=== PATIENT | female | born 1985 | race Caucasian/White ===

== ENCOUNTER 2019-12-04 06:37 | Day surgery (SDC) | payer BC ==
[2019-12-04] VITALS (10 sets, daily range): BP systolic 96–104; BP diastolic 54–74
[~2019-12-04] VITALS: Ht 154.9 cm; Wt 47.2 kg
[2019-12-04] MEDS ORDERED: PRENATA CHEWAB1 EACH PO (07:08)
[2019-12-04] MEDS ORDERED: FISH OIL CAP1000 MG ORAL (07:08)
[2019-12-04] MEDS ORDERED: COQ1050 MG PO (07:08)
[2019-12-04] MEDS ORDERED: fentaNYL 100 mcg/2 mL IV ONE (07:13)
[2019-12-04] MEDS ORDERED: Midazolam 2mg/2ml Inj ONE (07:13)
[2019-12-04] MEDS ORDERED: LR 1000ml 1,000 ML IVLG SCH (07:44)
--- NOTE | 2019-12-04 07:44 | Anethesia Preoperative Eval ---
Anesthesia Pre-op PMH/ROS General Date of Evaluation: Dec 04, 2019 Time of Evaluation: 07:40 Anesthesiologist: Estefania ASA Score: ASA 2 Mallampati Score Class I : Soft palate, uvula, fauces, pillars visible Class II: Soft palate, uvula, fauces visible Class III: Soft palate, base of uvula visible Class IV: Only hard plate visible Mallampati Classification: Class II Surgeon: Ludwig Diagnosis: Abdominal pain Surgical Procedure: Colonoscopy Anesthesia History: PONV Family History: no anesthesia problems Allergies: Coded Allergies: No Known Allergies (Unverified , 12/04/19) Medications: see eMAR Patient NPO?: Yes Past Medical History Cardiovascular: Denies: HTN, CAD, [place], valve dz, arrhythmia, other Pulmonary: Denies: asthma, COPD, VIDYA, other Gastrointestinal/Genitourinary: Reports: GERD, other - recurrent diarrhea; Denies: CRI, ESRD Neurologic/Psychiatric: Reports: depression/anxiety; Denies: dementia, CVA, TIA, other Endocrine: Denies: DM, hypothyroidism, steroids, other HEENT: Denies: cataract (L), cataract (R), glaucoma, [place] (L[place] (R), other Hematology/Immune: Reports: anemia - mild; Denies: DVT, bleeding disorder, other Musculoskeletal/Integumentary: Denies: OA, RA, DJD, DDD, edema, other PMH Narrative: as above PSxH Narrative: Appendectomy Anesthesia Pre-op Phys. Exam Physician Exam Last Vital Signs Date Time Temp Pulse Resp B/P (MAP) Pulse Ox O2 Delivery O2 Flow Rate FiO2 12/04/19 07:14 Room Air 12/04/19 07:09 97.6 75 18 96/63 100 Constitutional: NAD Neurologic: CN 2-12 intact Cardiovascular: RRR, no M/R/G Respiratory: CTA Gastrointestinal: S/NT/ND Airway Exam Mallampati Score: Class II MO: full Neck: flexible ROM: full Teeth: intact Dentures: no upper, no lower Anesthesia Pre-op A/P Labs see chart Urine Test Test 12/04/19 06:50 Urine HCG, Qualitative Negative (NEGATIVE) Risk Assessment & Plan Assessment: ASA 2 Plan: MAC Status Change Before Surgery: No Pre-Antibiotics Drug: none Adan Mac MD Dec 04, 2019 07:44
[2019-12-04] MEDS ORDERED: Meperidine 25mg/0.5ml Inj (FOR RIGORS ONLY) IV PRN (07:45)
[2019-12-04] MEDS ORDERED: Propofol 200mg/20ml IV ONE (08:00)
[2019-12-04] MEDS ORDERED: LR 1000ml ONE (08:00)
--- NOTE | 2019-12-04 08:11 | Short Stay Surgery H&P ---
History of Present Illness History of Present Illness Chief Complaint see typed H&P HPI Jenaera Khang Sandra is a 34 year old female who was admitted on for Diarrhea Patient History Allergies: Coded Allergies: No Known Allergies (Unverified , 12/04/19) Medication History Scheduled Fish Oil (Fish Oil 1,000 mg Capsule), 1,000 MG ORAL DAILY, (Reported) Vit37/Iron/Folic Acid ([place] Chewable Tablet), 1 EACH PO DAILY, ( Reported) Ubidecarenone (Coq10), 50 MG PO DAILY, (Reported) Physical Exam Vital Signs Last Vital Signs Date Time Temp Pulse Resp B/P (MAP) Pulse Ox O2 Delivery O2 Flow Rate FiO2 12/04/19 07:14 Room Air 12/04/19 07:09 97.6 75 18 96/63 100 Labs Laboratory Tests Test 12/04/19 06:50 Urine HCG, Qualitative Negative (NEGATIVE) Plan Attestation Are the patient's medical conditions optimized for surgery? Bing Kirkpatrick MD Dec 04, 2019 08:11
--- NOTE | 2019-12-04 08:11 | Pre-Procedure Note/Attestation ---
Pre-Procedure Note/Attestation Complete Prior to Procedure Planned Procedure: not applicable Procedure Narrative: colon bx Indications for Procedure Pre-Operative Diagnosis: diarrhea Attestation I attest that I discussed the nature of the procedure; its benefits; risks and complications; and alternatives (and the risks and benefits of such alternatives ), prior to the procedure, with the patient (or the patient's legal metals sales representative). I attest that, if there was a reasonable possibility of needing a blood transfusion, the patient (or the patient's legal metals sales representative) was given the [facility] standardized written summary, pursuant to the [place] Blood Safety Act ([place] Health and Safety Code # 1645, as amended). I attest that I re-evaluated the patient just prior to the surgery and that there has been no change in the patient's H&P, except as documented below: Bing Kirkpatrick MD Dec 04, 2019 08:11
--- NOTE | 2019-12-04 08:44 | Immediate Post-Op Evaluation ---
Immediate Post-Op Evalulation Immediate Post-Op Evalulation Procedure: Colonoscopy Date of Evaluation: Dec 04, 2019 Time of Evaluation: 08:43 IV Fluids: 700 Blood Products: none Estimated Blood Loss: none Urinary Output: none Blood Pressure Systolic: 104 Blood Pressure Diastolic: 56 Pulse Rate: 72 Respiratory Rate: 20 O2 Sat by Pulse Oximetry: 99 Temperature (Fahrenheit): 97.6 Pain Score (1-10): 1 Nausea: No Vomiting: No Complications none Patient Status: awake, patent, none Hydration Status: adequate Adan Mac MD Dec 04, 2019 08:44
--- NOTE | 2019-12-04 10:08 | 48 Hour Post Anesthesia Eval ---
Post Anesthesia Evaluation Procedure: Colonoscopy Date of Evaluation: Dec 04, 2019 Time of Evaluation: 10:07 Blood Pressure Systolic: 102 0: 54 Pulse Rate: 76 Respiratory Rate: 20 Temperature (Fahrenheit): 97.6 O2 Sat by Pulse Oximetry: 98 Airway: patent Nausea: No Vomiting: No Pain Intensity: 1 Hydration Status: adequate Cardiopulmonary Status: stable Mental Status/LOC: patient returned to baseline Follow-up Care/Observations: n/a Post-Anesthesia Complications: none Follow-up care needed: ready to discharge Adan Mac MD Dec 04, 2019 10:08
--- NOTE | 2019-12-04 15:00 | Operative Note - Dictated ---
DATE OF OPERATION: 12/04/2019 GASTROENTEROLOGY PROCEDURE REPORT PROCEDURE: Colonoscopy with biopsy. SURGEON: Bing Kirkpatrick M.D. ANESTHESIA: Please see the separate anesthesia notes by Dr. Adan Mac. PRE-ENDOSCOPIC DIAGNOSIS: Chronic diarrhea, rule out microscopic colitis or inflammatory bowel disease. POST-ENDOSCOPIC DIAGNOSIS: Normal colonoscopy as well as the terminal ileum to about 15 cm, status post biopsy. DESCRIPTION OF PROCEDURE: The procedure, its risks, indications, alternatives, and possible complications were explained to the patient and informed consent was obtained. The patient was then sedated in the left lateral decubitus position and a diagnostic colonoscope was introduced into the rectum and advanced to the cecum and then for 15 cm into the terminal ileum. The colonoscope was then gradually withdrawn and mucosa examined carefully. The examination of the colon and terminal ileum were both normal. Systematically, no evidence of aphthous ulcerations or inflammation was seen. Random biopsies of the terminal ileum, right colon, left colon, and rectosigmoid colon were sent to pathology for review. The patient tolerated the procedure well and was left to recovery in good condition. COMPLICATIONS: None. RECOMMENDATIONS: 1. Follow up biopsy results. 2. Outpatient followup. Bing Kirkpatrick M.D. DR: JOHANA JOB#: [id number] CC:
--- NOTE | 2019-12-11 16:32 | Endoscopy Procedure Note ---
Endoscopy Procedure Note General Indication for Procedure: diarrhea, r/o IBD Operative Findings/Diagnosis: normal Anesthesia Anesthesiologist: see notes Anesthesia: MAC Inserted Devices Implant(s) used?: No GI Core Measures 50 yrs or older w/o bx or poly: Not Applicable 10yrs. F/U recommended: Not Applicable Bing Kirkpatrick MD Dec 11, 2019 16:32
--- NOTE | 2019-12-11 16:33 | Brief Operative Note ---
Immediate Post Operative Note Operative Note Chief Complaint: diarrhea Pre-op Diagnosis: diarrhea Procedure: colon bx Post-op Diagnosis: Normal colonoscopy as well as the terminal ileum to about 15 cm, status post biopsy. Specimen: yes Complications: none Fluids: recorded Implant(s) used?: No Bing Kirkpatrick MD Dec 11, 2019 16:33
== END 2019-12-04 09:40 | disposition home or self-care (01) ==
LOC: GAS 06:37
DX: R19.7 Diarrhea, unspecified (principal); K21.9 Gastro-esophageal reflux disease without esophagitis; Z90.89 Acquired absence of other organs; D64.9 Anemia, unspecified; F32.9 Major depressive disorder, single episode, unspecified; F41.9 Anxiety disorder, unspecified
CPT/HCPCS: 45380; 81025; J2250; J2704; J3010; J7120; 94003; 94150